=== PATIENT | male | born 2000 | race Caucasian/White ===

== ENCOUNTER 2024-11-16 05:45 | Emergency (ER) | payer BC, OTHER ==
[2024-11-16] MEDS ORDERED: methylPREDNISolone Sod Succ/PF 125 MG/2 ML VIAL ONE (05:57)
[2024-11-16] MEDS ORDERED: diphenhydrAMINE 50 MG/ML VIAL ONE (05:58)
[2024-11-16] MEDS ORDERED: Famotidine/PF 20 mg/2ml Vial ONE (05:58)
== END 2024-11-16 07:17 | disposition home or self-care (01) ==
LOC: CSHERS 05:45
DX: T78.1XXA Other adverse food reactions, not elsewhere classified, initial encounter (principal); L50.9 Urticaria, unspecified; F17.210 Nicotine dependence, cigarettes, uncomplicated; X58.XXXA Exposure to other specified factors, initial encounter
CPT/HCPCS: 96374; 96375; J1200; J2919; J3490